=== PATIENT | female | born 1950 | race Caucasian/White ===

== ENCOUNTER 2020-08-24 08:58 | Day surgery (SDC) | payer BC, MEDICARE ==
[~2020-08-24] VITALS: Ht 162.6 cm; Wt 99.0 kg
[2020-08-24] MEDS ORDERED: DIPHENHYDRAMINE 50 MG/ML, 1ML ONE (10:02)
[2020-08-24] MEDS ORDERED: HYDR-3248 PO (10:11)
[2020-08-24] MEDS ORDERED: SPIR25TA PO (10:11)
[2020-08-24] MEDS ORDERED: ZOLP-413 PO (10:11)
[2020-08-24] MEDS ORDERED: AMIT100T PO (10:11)
[2020-08-24] MEDS ORDERED: MONT10TA6 PO (10:11)
[2020-08-24] MEDS ORDERED: CELE200C PO (10:11)
[2020-08-24] MEDS ORDERED: DEXL60CA2 PO (10:11)
[2020-08-24] MEDS ORDERED: Robaxin PO (10:11)
[2020-08-24] MEDS ORDERED: AMLO2.5T5 PO (10:11)
[2020-08-24 10:12] VITALS: BP 159/101
[2020-08-24] MEDS ORDERED: SODIUM CHLORIDE 0.9% 1,000 ML IV SCH ×2 (10:30→13:00)
[2020-08-24] MEDS ORDERED: DIPHENHYDRAMINE 50 MG/ML, 1ML IVPush ONE (10:30)
[2020-08-24 10:45] LABS: BASOPHILS % (AUTO) 0 % (0-1); EOSINOPHILS % (AUTO) 0 % (1-7); LYMPHOCYTES % (AUTO) 11 % (22-44); MEAN CORPUSCULAR HEMOGLOBIN 24.6 pg (27.0-34.8); MEAN CORPUSCULAR HGB CONC 32.6 g/dL (32.4-35.8); MEAN PLATELET VOLUME 7.4 fL (7.4-10.4); MONOCYTES % (AUTO) 6 % (2-9); NEUTROPHILS % (AUTO) 83 % (42-75); PLATELET COUNT 176 x10^3/uL (130-400); RED BLOOD COUNT 4.69 x10^6/uL (3.82-5.3); RED CELL DISTRIBUTION WIDTH 17.2 % (9.6-15.2)
[2020-08-24 10:55] LABS: INTERNATIONAL NORMALIZED RATIO 1.02 (0.93-1.1); PROTHROMBIN TIME 10.9 Seconds (9.6-11.5)
[2020-08-24 10:56] LABS: ANION GAP 6 mmol/L (5-15); CALCIUM 9.1 mg/dL (8.5-10.1); CHLORIDE 109 mmol/L (98-107)
[2020-08-24 11:01] LABS: CREATININE 1.01 mg/dL (0.55-1.02)
[2020-08-24] MEDS ORDERED: LIDOCAINE-MPF 1%, 5ML ONE (11:19)
[2020-08-24] MEDS ORDERED: MIDAZOLAM 1 MG/ML, 5ML ONE ×2 (11:19→12:27)
[2020-08-24] MEDS ORDERED: VERAPAMIL 2.5 MG/ML, 2ML ONE (11:19)
[2020-08-24] MEDS ORDERED: FENTANYL PF 100 MCG/2ML ONE ×2 (11:19→12:28)
[2020-08-24] MEDS ORDERED: HEPARIN 1,000 UNITS/ML, 10ML ONE (11:19)
[2020-08-24] MEDS ORDERED: hydrALAzine 20 MG/ML, 1ML ONE (12:25)
[2020-08-24] MEDS ORDERED: LIDOCAINE 1%, 20ML ONE (12:26)
[2020-08-24] MEDS ORDERED: METOPROLOL 1 MG/ML, 5ML ONE (12:50)
[2020-08-24] MEDS ORDERED: HYDROcodone/APAP 5/325 TABLET ONE (13:25)
[2020-08-24] MEDS ORDERED: MORPHINE SULFATE 4 MG/ML, 1ML ONE (13:25)
[2020-08-24] MEDS: MORPHINE SULFATE 4 MG/ML, 1ML IVPush PRN ×2 (13:40→14:23)
[2020-08-24] MEDS ORDERED: HYDROcodone/APAP 5/325 TABLET PO ONE (14:00)
[2020-08-24] MEDS ORDERED: MORPHINE SULFATE 4 MG/ML, 1ML IVPush PRN ×2 (15:00)
== END 2020-08-24 16:05 | disposition home or self-care (01) ==
LOC: CACL 08:58
PROVIDERS: ATTEND Internal Medicine Cardiovascular Disease
DX: R06.02 Shortness of breath (principal); I27.0 Primary pulmonary hypertension; Z79.899 Other long term (current) drug therapy; Z98.890 Other specified postprocedural states
CPT/HCPCS: 36415; 80048; 83880; 85025; 85610; 93460; 99156; 99157; C1760; C1769; C1894; J0360; J1200; J1644; J2250; J2270; J3010; Q9967; 82803